=== PATIENT | female | born 1985 | race Caucasian/White ===

== ENCOUNTER 2019-03-08 08:28 | Outpatient (CLI) | payer OTHER ==
[2019-03-08] MEDS ORDERED: GADOBUTROL 10 MMOL/10 ML VIAL ONE (08:29)
--- NOTE | 2019-03-09 10:57 | MRI Report ---
Reason: LOW BACK PAIN Procedure Date: 03/08/2019 Accession Number: [id number] / [id number] Procedure: MRI - Lumbar Spine W/O CPT Code: FULL RESULT: EXAM: MRI LUMBAR SPINE WITHOUT CONTRAST EXAM DATE: 03/08/2019 09:23 AM. CLINICAL HISTORY: LOW BACK PAIN. COMPARISON: None. TECHNIQUE: Multiplanar, multisequence T1-weighted and fluid-sensitive sequences of the lumbar spine from T12 to S1 without contrast. Other: None. FINDINGS: Spinal Canal: The conus terminates at L1-L2. The conus medullaris and cauda equina are unremarkable. Alignment: 3 mm retrolisthesis at L5-S1. Bone Marrow: Five ssu-zwm-kxbxjvx lumbar vertebral bodies are assumed. No gross fractures or bone lesions. No bone marrow replacement. Disk Levels/Facets: T12-L1: Unremarkable. L1-L2: Unremarkable. L2-L3: Unremarkable. L3-L4: Unremarkable. L4-L5: Unremarkable. L5-S1: There is a right paracentral annular tear with a small disk protrusion posteriorly displacing the right S1 nerve root in the lateral recess. There is mild right foraminal narrowing. The left neural foramen is patent. Musculature: Normal. No edema or fatty atrophy. Other: The partially visualized retroperitoneum is unremarkable. IMPRESSION: 1. Right paracentral disk protrusion at L5-S1 posteriorly displacing the right S1 nerve root in the lateral recess. 2. No other significant abnormality. Comment: The following findings are so common in adults without low back pain that while we report their presence, they must be interpreted with caution and in the context of the clinical situation. (Reference Advik et al, Spine 2001) Prevalence of findings in patients without low back pain: Disk degeneration (any evidence): 92% Disk desiccation/T2 signal loss: 83% Disk height loss: 56% Disk bulge: 64% Disk protrusion: 32% Annular tear/high intensity zone: 38% RADIA
== END 2019-03-08 08:29 | disposition home or self-care (01) ==
LOC: DI 08:28
PROVIDERS: ATTEND General Practice
DX: M51.27 Other intervertebral disc displacement, lumbosacral region (principal)
CPT/HCPCS: 72148

== ENCOUNTER 2019-09-25 15:09 | Emergency (ER) | payer OTHER ==
--- NOTE | 2019-09-25 17:54 | ED Physician Documentation ---
PD HPI BACK PAIN - Stated complaint Stated Complaint: BACK PX - Chief complaint Chief Complaint: Back Pain - History obtained from History obtained from: Patient - History of Present Illness Timing - onset: Today Timing - duration: Days (1) Timing - details: Abrupt onset, Still present Location: Lower, Right Quality: Pain, Sharp Associated symptoms: Numbness (down right leg - he has had some residual numbness from nerve impingement, but had improved (not gone) with disc surgery in Apr 2019. Is having worsened numbness but no weakness, with pain today.). No: Fever, Weakness Improves with: No: Rest Worsened by: Movement, Twisting Contributing factors: Twisting (he says he twisted to get soap in the shower this morning and felt abrupt pain in right back, radiating down right leg.) Similar symptoms before: Diagnosis (henriated disc with nerve impingement) Recently seen: Surgery (had disc surgery 5 months ago in [place].) Review of Systems Constitutional: denies: Fever, Chills Nose: denies: Rhinorrhea / runny nose, Congestion Throat: denies: Sore throat Respiratory: denies: Cough GI: denies: Nausea, Vomiting, Diarrhea : denies: Frequency, Incontinent Skin: denies: Rash, Lesions Musculoskeletal: reports: Back pain Neurologic: reports: Numbness. denies: Focal weakness PD PAST MEDICAL HISTORY - Past Medical History Cardiovascular: None Respiratory: None Neuro: None Endocrine/Autoimmune: None Musculoskeletal: Chronic back pain (has some pain to mild dgree regularly, but now is abruptly worse today. ) - Present Medications Home Medications: Ambulatory Orders Medication Instructions Recorded Confirmed Cyclobenzaprine [Flexeril] 10 mg PO TID PRN #20 tablet 09/25/19 Hydrocodone/Acetaminophen 1 - 2 each PO Q6H PRN #20 tablet 09/25/19 [Hydrocodon-Acetaminophen 5-325] dexAMETHasone [Decadron] 4 mg PO DAILY #5 tablet 09/25/19 - Allergies Allergies/Adverse Reactions: Allergies Allergy/AdvReac Type Severity Reaction Status Date / Time No Known Drug Allergies Allergy Verified 09/25/19 15:19 PD ED PE NORMAL - Vitals Vital signs reviewed: Yes - General General: Alert and oriented X 3, Well developed/nourished, Other (appears uncomfortable and is guarding ROM of the lower back. ) - Cardiac Cardiac: RRR, No murmur - Respiratory Respiratory: Clear bilaterally - Abdomen Abdomen: Soft, Non tender - Back Back: No CVA TTP, Other (tender in lower lumbar area just right of center and midline as well. Some tender in right lumbar lower muscles. Guarded ROM. ) - Derm Derm: Normal color, Warm and dry - Neuro Neuro: Alert and oriented X 3, No motor deficit, Other (decreased sensation lateral right lower leg and side of foot c/w L5 nerve. No motore deficit for ankle/foot movement. ) Results - Vitals Vitals: Vital Signs - 24 hr 09/25/19 09/25/19 09/25/19 15:19 19:00 20:07 Temperature 37 C 36.7 C 37.1 C Heart Rate 78 75 73 Respiratory 18 22 20 Rate Blood Pressure 157/94 H 150/107 H 147/100 H O2 Saturation 96 96 95 Oxygen O2 Source Room air - Rads (name of study) CT lumbar Radiology: Prelim report reviewed (HNP L5 level, similar to prior MRI of that area. ), See rad report PD MEDICAL DECISION MAKING - ED course Complexity details: reviewed results (CT showing HNP L5S1 similar to prior MRI, but he had had interval surgery of disc so at this point, would be recurrent disc protrusion. No general cord impingement/tightness. Bony structure okay.), re-evaluated patient (improved pain enough, per patient, after IM meds. ), considered differential (some recurrent sciatic symptoms. No euqinal symptoms per se. can get CT to initially eval for significant process. ), d/w patient Departure - Departure Disposition: 01 Home, Self Care Clinical Impression: Low back pain Qualifiers: Chronicity: acute Back pain laterality: right Sciatica presence: with sciatica Sciatica laterality: sciatica of right side Qualified Code(s): M54.41 - Lumbago with sciatica, right side Condition: Stable Record reviewed to determine appropriate education?: Yes Instructions: ED Low Back Pain Injury, ED Sciatica Follow-Up: MADHAV KIRKPATRICK MD [Primary Care Provider] - Prescriptions: Cyclobenzaprine [Flexeril] 10 mg PO TID PRN #20 tablet PRN Reason: Spasms dexAMETHasone [Decadron] 4 mg PO DAILY #5 tablet Hydrocodone/Acetaminophen [Hydrocodon-Acetaminophen 5-325] 1 - 2 each PO Q6H PRN #20 tablet PRN Reason: pain Comments: Heat and gentle stretching for the low back to reduce spasms and stiffness. Continue semi-. Profen anti-inflammatory 600 mg 3 times a day. To that add dexamethasone steroid anti-inflammatory daily for 5 days. Continue the cyclobenzaprine muscle relaxant 3 times a day for stiffness and spasms. Add Tylenol or hydrocodone as needed for pain. Follow-up with the back specialist Friday as planned. Return sooner if worse symptoms. Limited bending lifting and prolonged standing for the next several days as well. Forms: Activity restrictions Discharge Date/Time: 09/25/19 20:18
[2019-09-25] MEDS ORDERED: HYDROmorphone 1 MG/ML CARPUJECT IM STA (18:27)
[2019-09-25] MEDS ORDERED: KETOROLAC 60 MG/2 ML VIAL IM STA (18:27)
[2019-09-25] MEDS ORDERED: ONDANSETRON ODT 4 MG TABLET TL STA (18:28)
[2019-09-25] MEDS ORDERED: CHERRY SYRUP 10 ML UDC PO ONE (18:28)
[2019-09-25] MEDS ORDERED: DEXAMETHASONE 10 MG/ML VIAL PO STA (18:28)
--- NOTE | 2019-09-25 19:32 | CT Report ---
Reason: low back pain abrupt Procedure Date: 09/25/2019 Accession Number: [id number] / [id number] Procedure: CT - LUMBAR SPINE WO CPT Code: Final Report FULL RESULT: EXAM: CT LUMBAR SPINE WITHOUT CONTRAST EXAM DATE: 09/25/2019 06:51 PM. CLINICAL HISTORY: Low back pain abrupt. COMPARISONS: LUMBAR SPINE W/O 03/08/2019 8:57 AM. TECHNIQUE: Thin-section axial images were acquired of the lumbar spine from T12 to S1 without contrast. Post-processing: Coronal and sagittal reformats. Other: None. In accordance with CT protocol optimization, one or more of the following dose reduction techniques were utilized for this exam: automated exposure control, adjustment of mA and/or KV based on patient size, or use of iterative reconstructive technique. FINDINGS: Alignment: No scoliosis or spondylolisthesis. Bones: Five jvw-vok-qnsfenc lumbar vertebral bodies are present. No fractures or bone lesions. Disk Levels/Facets: T12-L1: Unremarkable. L1-L2: Unremarkable. L2-L3: Unremarkable. L3-L4: Unremarkable. L4-L5: Unremarkable. L5-S1: Right sided paracentral disc protrusion with right neuroforaminal narrowing, same location as MRI dated 03/08/19. Musculature: Normal. No fatty atrophy. Other: The visualized retroperitoneum is unremarkable. IMPRESSION: At L5-S1, right paracentral disc protrusion, same location as MRI dated 03/08/19. RADIA
[2019-09-25] MEDS ORDERED: HYDROcod/ACET 5/325 Prepack 4 PO STA (19:37)
[2019-09-25 20:07] VITALS: BP 147/100
== END 2019-09-25 20:18 | disposition home or self-care (01) ==
LOC: ED 15:09
DX: M54.41 Lumbago with sciatica, right side (principal); G89.29 Other chronic pain
CPT/HCPCS: 72131; 96372; 99284; A9270; J1170; Q0162

== ENCOUNTER 2019-12-09 13:51 | Outpatient (CLI) | payer OTHER ==
[2019-12-09] MEDS ORDERED: GADOBUTROL 15 MMOL/15 ML VIAL ONE (14:15)
[2019-12-09] MEDS ORDERED: GADOBUTROL 15 MMOL/15 ML VIAL IVP ONE (14:55)
--- NOTE | 2019-12-09 16:35 | MRI Report ---
Reason: LOW BACK PAIN Procedure Date: 12/09/2019 Accession Number: [id number] / [id number] Procedure: MRI - Lumbar Spine W/WO CPT Code: Final Report FULL RESULT: EXAM: MRI LUMBAR SPINE WITHOUT AND WITH CONTRAST EXAM DATE: 12/09/2019 03:11 PM. CLINICAL HISTORY: Low back pain with right lower extremity radiculopathy. Prior microdiskectomy. COMPARISONS: 09/25/[address] A 2018 lumbar spine MRI. TECHNIQUE: Multiplanar, multisequence T1-weighted and fluid-sensitive sequences of the lumbar spine from T12 to S1 before and after administration of intravenous contrast. Other: None. IV contrast: 11 mL Gadavist. FINDINGS: Neurologic Structures: The conus terminates at . The conus medullaris and cauda equina are unremarkable. Alignment: No scoliosis or spondylolisthesis. Bone Marrow: Five mnq-fnd-irfttsa lumbar vertebral bodies are assumed. No gross fractures or bone lesions. No bone marrow replacement or abnormal enhancement. Postsurgical changes of prior right L5 hemilaminotomy and microdiskectomy. Disk Levels/Facets: T12-L1: Unremarkable. L1-L2: Unremarkable. L2-L3: Unremarkable. L3-L4: Unremarkable. L4-L5: Unremarkable. L5-S1: Shallow residual or recurrent right central disk protrusion approximates but does not displace the traversing right L5 nerve root. No foraminal stenosis. Spinal Canal: No enhancing masses within the spinal canal. No epidural abscess. Musculature: Normal. No edema, abnormal enhancement, or fatty atrophy. Other: The visualized retroperitoneum is unremarkable. IMPRESSION: Interval L5-S1 microdiskectomy, with a shallow residual or recurrent right central disk protrusion that approximates but does not displace the traversing right L5 nerve root. Comment: The following findings are so common in adults without low back pain that while we report their presence, they must be interpreted with caution and in the context of the clinical situation. (Reference Brittonk et al, Spine 2001) Prevalence of findings in patients without low back pain: Disk degeneration (any evidence): 92% Disk desiccation/T2 signal loss: 83% Disk height loss: 56% Disk bulge: 64% Disk protrusion: 32% Annular tear/high intensity zone: 38% RADIA
== END 2019-12-09 13:52 | disposition home or self-care (01) ==
LOC: DI 13:51
DX: M51.27 Other intervertebral disc displacement, lumbosacral region (principal)
CPT/HCPCS: 72158; A9585

== ENCOUNTER 2020-01-28 18:04 | Emergency (ER) | payer OTHER ==
--- NOTE | 2020-01-28 20:41 | ED Physician Documentation ---
History of Present Illness - Stated complaint Stated Complaint: MED REACTION - Chief complaint Chief Complaint: General - History obtained from History obtained from: Patient - History of Present Illness Timing: How many days ago (2) Pain level max: 0 Pain level now: 0 - Additonal information Additional information: 34-year-old male presents to the emergency department stating for the past 2 days he has had intermittent tingling to the right side of the face, occasionally spreads to the back of the head. No neck pain. Has chronic back pain. Received a lumbar spine steroid injection approximately 1.5 weeks ago. Was then placed on oral steroids for the past 5 days, dexamethasone. States that the symptoms started the day after he stopped that. No fevers. No nausea or vomiting. Nothing makes it better or worse. He states that it lasts anywhere from a few seconds to a few minutes. Review of Systems Ten Systems: 10 systems reviewed and negative Constitutional: denies: Fever, Chills, Myalgias Eyes: denies: Photophobia Ears: denies: Ear pain Nose: denies: Rhinorrhea / runny nose, Congestion Throat: denies: Sore throat Cardiac: denies: Chest pain / pressure, Palpitations Respiratory: denies: Cough GI: denies: Abdominal Pain, Nausea, Vomiting, Diarrhea Skin: denies: Rash Musculoskeletal: reports: Back pain (chronic, no changes). denies: Neck pain Neurologic: reports: Generalized weakness PD PAST MEDICAL HISTORY - Past Medical History Cardiovascular: None Respiratory: None Neuro: None Endocrine/Autoimmune: None Musculoskeletal: Chronic back pain (has some pain to mild dgree regularly, but now is abruptly worse today. ) - Past Surgical History Past Surgical History: Yes - Present Medications Home Medications: Ambulatory Orders Medication Instructions Recorded Confirmed Cyclobenzaprine [Flexeril] 10 mg PO TID PRN #20 tablet 09/25/19 Hydrocodone/Acetaminophen 1 - 2 each PO Q6H PRN #20 tablet 09/25/19 [Hydrocodon-Acetaminophen 5-325] dexAMETHasone [Decadron] 4 mg PO DAILY #5 tablet 09/25/19 - Allergies Allergies/Adverse Reactions: Allergies Allergy/AdvReac Type Severity Reaction Status Date / Time No Known Drug Allergies Allergy Verified 01/28/20 18:14 - Social History Does the pt smoke?: No Smoking Status: Never smoker Does the pt drink ETOH?: Yes Does the pt have substance abuse?: No PD ED PE NORMAL - Vitals Vital signs reviewed: Yes - General General: Alert and oriented X 3, No acute distress - HEENT HEENT: Atraumatic, PERRL, EOMI, Ears normal, Moist mucous membranes, Pharynx benign - Neck Neck: Supple, no meningeal sign, No bony TTP, No JVD, No bruit - Cardiac Cardiac: RRR, No murmur, Strong equal pulses - Respiratory Respiratory: No respiratory distress, Clear bilaterally - Abdomen Abdomen: Soft, Non tender, Non distended - Back Back: No spinal TTP - Derm Derm: Warm and dry - Extremities Extremities: Normal ROM s pain, No edema - Neuro Neuro: Alert and oriented X 3, electroencephalographic technician 2-12 intact, No motor deficit, No sensory deficit, Normal speech, Other (normal facial movement) Eye Opening: Spontaneous Motor: Obeys Commands Verbal: Oriented GCS Score: 15 Results - Vitals Vitals: Vital Signs - 24 hr 01/28/20 01/28/20 01/28/20 18:11 19:46 21:00 Temperature 36.4 C L Heart Rate 81 82 72 Respiratory 18 18 15 Rate Blood Pressure 143/93 H 123/74 120/83 H O2 Saturation 98 99 97 01/28/20 21:04 Temperature Heart Rate 72 Respiratory 22 Rate Blood Pressure 120/83 H O2 Saturation 97 Oxygen O2 Source Room air - EKG (time done) 1932 Rate: Rate (enter#) (72) Rhythm: NSR Hoffman: Normal Intervals: Normal HI QRS: Normal Ischemia: Normal ST segments - Labs Labs: Laboratory Tests 01/28/20 01/28/20 01/28/20 19:20 20:48 20:48 WBC 10.9 H RBC 5.09 Hgb 15.5 Hct 44.7 MCV 87.8 MCH 30.5 MCHC 34.7 RDW 12.8 Plt Count 239 MPV 8.6 Neut # (Auto) 5.9 Lymph # (Auto) 3.3 Moffat # (Auto) 0.9 Eos # (Auto) 0.4 Baso # (Auto) 0.1 Absolute Nucleated RBC 0.00 Nucleated RBC % 0.0 Sodium 136 Potassium 4.0 Chloride 100 L Carbon Dioxide 26 Anion Gap 10.0 BUN 21 H Creatinine 1.0 Estimated GFR (MDRD) 86 L Glucose 102 H POC Whole Bld Glucose 95 Calcium 8.5 Phosphorus 4.9 H Magnesium 2.5 PD MEDICAL DECISION MAKING - ED course Complexity details: reviewed results, re-evaluated patient, considered differential, d/w patient ED course: Unclear etiology of his symptoms. Normal neurological examination here. Normal laboratory testing. Normal ear exam. Normal neck exam. No evidence of carotid dissection. No rash. Patient counseled regarding signs and symptoms for which I believe and urgent re-evaluation would be necessary. Patient with good understanding of and agreement to plan and is comfortable going home at this time This document was made in part using voice recognition software. While efforts are made to proofread this document, sound alike and grammatical errors may occur. Departure - Departure Disposition: 01 Home, Self Care Clinical Impression: Paresthesia Condition: Good Instructions: ED Paraesthesias Follow-Up: your,doctor in 3 days [Other] Comments: The cause of your symptoms is unclear today. That may be related to the medication. This should improve over the next few days. Please decrease any use of workout powders or caffeine. Your lab testing is normal today. Discharge Date/Time: 01/28/20 21:30
[2020-01-28 20:54] LABS: BASOPHILS # (AUTO) 0.1 10^3/uL (0.0-0.1); BASOPHILS % (AUTO) 0.5 %; EOSINOPHILS # (AUTO) 0.4 10^3/uL (0.0-0.7); HGB - HEMOGLOBIN 15.5 g/dL (14.0-18.0); LYMPHOCYTES # (AUTO) 3.3 10^3/uL (1.5-3.5); LYMPHOCYTES % (AUTO) 30.5 %; MEAN CORPUSCULAR HEMOGLOBIN 30.5 pg (27.0-31.0); MEAN CORPUSCULAR HGB CONC 34.7 g/dL (32.0-36.0); MEAN CORPUSCULAR VOLUME 87.8 fL (80.0-94.0); MEAN PLATELET VOLUME 8.6 fL (7.4-11.4); MONOCYTES # (AUTO) 0.9 10^3/uL (0.0-1.0); MONOCYTES % (AUTO) 8.2 %; NEUTROPHILS # (AUTO) 5.9 10^3/uL (1.5-6.6); NEUTROPHILS % (AUTO) 53.8 %; PLT - PLATELET COUNT 239 10^3/uL (130-450); RED BLOOD COUNT 5.09 10^6/uL (4.70-6.10); RED CELL DISTRIBUTION WIDTH 12.8 % (12.0-15.0); WHITE BLOOD COUNT 10.9 x10^3/uL (4.8-10.8)
[2020-01-28 21:05] VITALS: BP 120/83
[2020-01-28 21:07] LABS: CALCIUM 8.5 mg/dL (8.5-10.3); MAGNESIUM 2.5 mg/dL (1.7-2.8); PHOSPHORUS 4.9 mg/dL (2.5-4.6)
== END 2020-01-28 21:30 | disposition home or self-care (01) ==
LOC: ED 18:04
DX: R20.2 Paresthesia of skin (principal); R53.1 Weakness; M54.9 Dorsalgia, unspecified; G89.29 Other chronic pain; I45.10 Unspecified right bundle-branch block
CPT/HCPCS: 36415; 80048; 83735; 84100; 85025; 93005; 99283; 99285

== ENCOUNTER 2020-07-13 16:34 | Outpatient (CLI) | payer OTHER | END 2020-07-13 16:35 | disposition critical access hospital (66) | LOC: EMS 16:34 | PROVIDERS: ATTEND Surgery | DX: M54.5 Low back pain (principal); R10.9 Unspecified abdominal pain; M25.552 Pain in left hip | CPT/HCPCS: A0425; A0429 ==

== ENCOUNTER 2020-07-13 16:54 | Emergency (ER) | payer OTHER ==
[2020-07-13 17:22] LABS: BASOPHILS # (AUTO) 0.1 10^3/uL (0.0-0.1); BASOPHILS % (AUTO) 0.6 %; EOSINOPHILS # (AUTO) 0.3 10^3/uL (0.0-0.7); EOSINOPHILS % (AUTO) 3.7 %; HGB - HEMOGLOBIN 15.3 g/dL (14.0-18.0); LYMPHOCYTES # (AUTO) 2.3 10^3/uL (1.5-3.5); LYMPHOCYTES % (AUTO) 28.6 %; MEAN CORPUSCULAR HEMOGLOBIN 29.6 pg (27.0-31.0); MEAN CORPUSCULAR HGB CONC 33.4 g/dL (32.0-36.0); MEAN CORPUSCULAR VOLUME 88.6 fL (80.0-94.0); MEAN PLATELET VOLUME 8.9 fL (7.4-11.4); MONOCYTES # (AUTO) 0.7 10^3/uL (0.0-1.0); MONOCYTES % (AUTO) 8.9 %; NEUTROPHILS # (AUTO) 4.7 10^3/uL (1.5-6.6); NEUTROPHILS % (AUTO) 57.7 %; PLT - PLATELET COUNT 264 10^3/uL (130-450); RED BLOOD COUNT 5.17 10^6/uL (4.70-6.10); RED CELL DISTRIBUTION WIDTH 12.5 % (12.0-15.0); WHITE BLOOD COUNT 8.1 x10^3/uL (4.8-10.8)
[2020-07-13] MEDS ORDERED: IOVERSOL 320 100 ML VIAL IVP ONE ×2 (17:31→20:59)
[2020-07-13] MEDS ORDERED: HYDROmorphone 0.5 MG/0.5 ML SYRINGE IVP STA (17:39)
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
[2020-07-13 18:59] LABS: ALBUMIN 4.4 g/dL (3.2-5.5); ALBUMIN/GLOBULIN RATIO 1.5 (1.0-2.2); CALCIUM 9.3 mg/dL (8.5-10.3); CREATININE 0.9 mg/dL (0.6-1.2); TOTAL PROTEIN 7.4 g/dL (6.7-8.2)
[2020-07-13 19:19] VITALS: BP 128/83
== END 2020-07-13 19:22 | disposition home or self-care (01) ==
LOC: EDUNIT# → ED 16:54
DX: S20.312A Abrasion of left front wall of thorax, initial encounter (principal); M25.552 Pain in left hip; R10.9 Unspecified abdominal pain; M54.5 Low back pain; V53.5XXA Driver of pick-up truck or van injured in collision with car, pick-up truck or van in traffic accident, initial encounter; W22.11XA Striking against or struck by driver side automobile airbag, initial encounter; Y92.410 Unspecified street and highway as the place of occurrence of the external cause
CPT/HCPCS: 36415; 72125; 74177; 80053; 83690; 85025; 96374; 99284; 99285; J1170; Q9967; 86850; 86900; 86901